=== PATIENT | female | born 1985 | race Hispanic/Latino ===

== ENCOUNTER 2017-10-03 09:21 | Emergency (ER) | payer OTHER, SELFPAY ==
--- NOTE | 2017-10-03 11:20 | RAD ---
THREE VIEWS LEFT SHOULDER: Comparison: None. History: Left arm pain from hitting a door. FINDINGS: Three views of the left shoulder shows no evidence of acute fracture or dislocation. No soft tissue s welling is seen. No degenerative changes are present. Visualized left thorax is unremarkable. IMPRESSION: Unremarkable exam. POS: [facility]
== END 2017-10-03 12:22 | disposition home or self-care (01) ==
LOC: ERS 09:21
DX: M25.512 Pain in left shoulder (principal); V49.9XXA Car occupant (driver) (passenger) injured in unspecified traffic accident, initial encounter